=== PATIENT | female | born 1990 | race African-American/Black ===

== ENCOUNTER 2017-07-30 18:33 | Emergency (ER) | payer OTHER, BC ==
[~2017-07-30] VITALS: Ht 170.2 cm; Wt 68.0 kg
[2017-07-30 18:40] VITALS: BP 138/62; PULSE 78; RESP 18; TEMP 98; O2SAT 100
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
[2017-07-30] MEDS ORDERED: DICL75TA PO (20:41)
[2017-07-30] MEDS ORDERED: CYCL10TA PO (20:41)
[2017-07-30] MEDS ORDERED: NAPROXEN 500 MG TAB PO ONE (20:45)
[2017-07-30] MEDS ORDERED: CYCLOBENZAPRINE HCL 10 MG TAB PO ONE (20:45)
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
== END 2017-07-30 21:21 | disposition home or self-care (01) ==
LOC: NEPK 18:33
DX: S20.219A Contusion of unspecified front wall of thorax, initial encounter (principal); S29.012A Strain of muscle and tendon of back wall of thorax, initial encounter; V89.2XXA Person injured in unspecified motor-vehicle accident, traffic, initial encounter; Z72.0 Tobacco use
CPT/HCPCS: 71046; 99283